=== PATIENT | female | born 2000 | race Two or more races ===

== ENCOUNTER 2021-09-19 00:28 | Emergency (ER) | payer OTHER ==
[~2021-09-19] VITALS: Ht 157.5 cm; Wt 74.4 kg
[2021-09-19] MEDS ORDERED: SINGLE USE SWA1 EACH (00:39)
[2021-09-19] MEDS ORDERED: ZYNCOF 20-400120 ML PO (03:49)
[2021-09-19] MEDS ORDERED: ALBUTEROL2.5 MG/3 M IH (03:49)
[2021-09-19] MEDS ORDERED: PROVENTIL HFA6.7 GM IH (03:49)
[2021-09-19] MEDS ORDERED: SYMBICORT 16010.2 GM IH (03:49)
[2021-09-19] MEDS ORDERED: SINGULAIR10 MG PO (03:51)
== END 2021-09-19 03:56 ==
LOC: ER 00:28
DX: J45.901 Unspecified asthma with (acute) exacerbation (principal)